=== PATIENT | male | born 1970 | race Caucasian/White ===

== ENCOUNTER 2021-01-13 19:14 | Emergency (ER) | payer MEDICARE ==
[2021-01-13 20:11] LABS: HEMOGLOBIN 12.5 gm/dl (14.0-17.5); RED BLOOD COUNT 3.82 M/UL (4.20-5.50); WHITE BLOOD COUNT 10.2 K/UL (4.5-11.0)
[2021-01-13 20:28] LABS: BUN/CREATININE RATIO 17 (0-10)
[2021-01-14] MEDS ORDERED: PREDNISONE20 MG PO (00:14)
== END 2021-01-14 00:43 | disposition home or self-care (01) ==
LOC: ER1 19:14
PROVIDERS: Physician Assistant
DX: J06.9 Acute upper respiratory infection, unspecified (principal); I12.9 Hypertensive chronic kidney disease with stage 1 through stage 4 chronic kidney disease, or unspecified chronic kidney disease; E78.5 Hyperlipidemia, unspecified; E11.22 Type 2 diabetes mellitus with diabetic chronic kidney disease; N18.6 End stage renal disease; J20.9 Acute bronchitis, unspecified; I25.10 Atherosclerotic heart disease of native coronary artery without angina pectoris; R06.2 Wheezing; Z79.4 Long term (current) use of insulin; Z88.0 Allergy status to penicillin; Z20.822 Contact with and (suspected) exposure to COVID-19
CPT/HCPCS: 0240U; 71045; 80053; 82550; 82553; 83874; 83880; 84484; 85025; 93005; 94664; 99284